=== PATIENT | female | born 1955 | race Caucasian/White ===

== ENCOUNTER → 2017-05-06 | Outpatient (CLI) | payer BC ==
--- NOTE | 2017-05-06 13:07 | MAMMOGRAPHY REPORT ---
BILATERAL DIGITAL SCREENING MAMMOGRAM TOMOSYNTHESIS WITH CAD: 05/06/2017 CLINICAL HISTORY: Routine screening examination. TECHNIQUE: Breast tomosynthesis in addition to standard 2D mammography was performed. Current study was also evaluated with a Computer Aided Detection (CAD) system. COMPARISON: Comparison is made to exams dated: 05/01/2016 mammogram, 04/27/2015 mammogram, 04/22/2014 mammogram, 04/21/2013 mammogram, 04/14/2012 mammogram, and 03/29/2010 mammogram - [facility]. BREAST COMPOSITION: There are scattered areas of fibroglandular density in both breasts. FINDINGS: There is a stable subcentimeter circumscribed benign mass in the anterior right breast. No suspicious spiculated or irregular mass, architectural distortion or cluster of microcalcifications is seen. IMPRESSION: ACR BI-RADS CATEGORY 1: NEGATIVE There is no mammographic evidence of malignancy. A 1 year screening mammogram is recommended. The pa tient will receive written notification of the results. Approximately 10% of breast cancers are not detected with mammography. A negative mammographic report should not delay biopsy if a clinically suggestive mass is present. Pilar Nicole M.D. ay/:05/06/2017 08:00:22 Physician Vice President: Madeline ABBASI(R)(M), [facility] letter sent: Normal 1/2 BI-RADS Code: ACR BI-RADS Category 1: Negative
== END | disposition home or self-care (01) ==
LOC: C.MAMM 07:06
PROVIDERS: ATTEND Obstetrics & Gynecology
DX: Z12.31 Encounter for screening mammogram for malignant neoplasm of breast (principal)

== ENCOUNTER 2022-09-08 07:37 | Observation (INO) ==
--- NOTE | 2022-09-08 07:58 | Emergency Department Note ---
ED Visit Note .
[2022-09-08] MEDS ORDERED: SODIUM CHLORIDE 0.9% 1000ML 1,000 ML IV ONE (08:16)
[2022-09-08] MEDS ORDERED: LORazepam 2 MG/1 ML VIAL IV STA (08:16)
[2022-09-08] MEDS ORDERED: ONDANSETRON INJ 2 MG/ML 2 ML VIAL IV STA (08:19)
--- NOTE | 2022-09-08 08:21 | Emergency Department Note ---
ED Provider Note History of Present Illness Chief Complaint: Dizziness Stated Complaint: DIZZINESS Time Seen by Provider: 09/08/22 07:51 This is a 67-year-old female with a history of vertigo for many years, hypertension, high cholesterol, accompanied by her , who presents to the emergency department with dizziness that began about 6 hours ago at 230 this morning when she woke up in the middle of the night. She felt diaphoretic and vomited twice. She states that she was walking down the rojas and felt like a drunk infantry senior sergeant stating that she kept bumping into the wall. She tried going back to bed and when she woke up this morning she was still having symptoms so she took a dose of meclizine. She does have a history of intermittent vertigo and will often take a half tab of meclizine which generally improves her symptoms. She states that she only vomited one other time in her past from a severe episode of meclizine. She is recovering from a bad cold that lasted about 4 weeks. Her symptoms began to resolve about 2 weeks ago. Right now she is feeling slightly better than she did earlier this morning, but she states that if she were to get up right now she thinks she would probably still be stumbling. When she sits still she is improved, changes in position seem to make her symptoms worse. She does not have a headache or any changes in vision, denies any chest pain or palpitations right now or during the event earlier today. She denies any fevers or chills, no numbness or tingling or weakness in her upper or lower extremities, facial droop, slurred speech. Has been evaluated for her vertigo in the past and states she has been prescribed the meclizine for the symptoms. No surgeries to her ears. Has never had a stroke. Takes aspirin, no other blood thinners Home Medications Medication Instructions Recorded Confirmed Type aspirin 81 mg tablet,delayed 81 mg PO DAILY 04/02/19 09/08/22 History release (Juliana Low Dose Aspirin) lisinopril 5 mg tablet 5 mg PO DAILY 04/02/19 09/08/22 History simvastatin 40 mg tablet 40 mg PO HS 04/02/19 09/08/22 History vitamin E 268 mg (400 unit) capsule 400 unit PO QAM 04/02/19 09/08/22 History meclizine 25 mg tablet 25 mg PO Q8H PRN Vertigo 09/08/22 09/08/22 History Allergies Allergy/AdvReac Type Severity Reaction Status Date / Time latex Allergy Unknown Unverified 09/08/22 09:36 No Known Drug Allergies Allergy Unknown Unverified 01/04/20 08:52 Past Med/Surg History Medical History Arthritis Hyperlipidemia Hypertension Vertigo Family History Other No significant family history Social History Smoking Status: Never smoker Second Hand Exposure: No; Do You Dip or Chew Tobacco: No; Tobacco Cessation Education Requested by Patient: No Hx Alcohol Use: No Hx Substance Use: No Preferred Language: Montenegrin Food Service Attendant Required: No Beliefs That Will Affect Care: None Current Living Situation: Spouse Other Information That Helps Us Care for You: No Feels Safe at Home: Yes Safety Concerns: Feels Safe At This Time Physical Exam Vital Signs Vital Signs - 24 hr 09/08/22 07:40 09/08/22 08:01 09/08/22 08:36 Temperature 97.9 F Temperature Source Temporal Artery Scan Pulse Rate 57 L 52 L Pulse Rate [Apical] 56 L Respiratory Rate 18 Blood Pressure 151/86 H Blood Pressure [Right Arm] 148/69 H Blood Pressure Mean 107 Blood Pressure Mean [Right Arm] 95 Pulse Oximetry 98 97 Oxygen Delivery Method Room Air Sepsis Recent Fever Within 48 Hours No Sepsis New/Unexplained Change in Mental Status N/A Sepsis Action Taken by Nursing No Action Required CONSTITUTIONAL: Well developed, well nourished, resting comfortably on stretcher with eyes low to avoid changes in position. HEAD: Normocephalic, atraumatic. EYES: PERRL, conjunctivae normal, extraocular muscles intact. No nystagmus. ENMT: External ears normal. TMs normal bilaterally with no bulging or fluid behind the TM. No evidence of otitis media. Nose with normal external appearance, no congestion. Oral mucous membranes moist. Oropharynx normal. Tongue midline, no fasciculations NECK: Full active range of motion. No rigidity. Supple. RESPIRATORY: Breathing unlabored and symmetric. Lungs clear to auscultation bilaterally. No wheeze, rales, or rhonchi. CARDIOVASCULAR: Regular rate and rhythm. No murmurs, rubs, or gallops. Radial pulses 2+ bilaterally. ABDOMEN: Normal bowel sounds. Soft, nontender, no peritonitis. No masses. MUSCULOSKELETAL: Moves all extremities at all joints without pain or difficulty SKIN: [place], warm, dry. No rash. NEUROLOGIC: Awake, alert, oriented. Cranial nerves II through XII intact. Coordination in upper and lower extremities intact. Sensation intact in bilateral upper and lower extremities. [id number] is normal. Patient to the right and the left minimally reproduces her symptoms though not severe. Patient with a slightly disrupted gait. She is able to track in a straight line but stumbles intermittently. Strength 5+ in bilateral upper and lower extremities. PSYCHIATRIC: Appropriate. Normal affect Course Reevaluation(s) Reevaluation #1: Reevaluated patient at bedside and discussed lab findings and CT scan. Patient stated that she was feeling slightly better though not completely resolved. I did ambulate her again and she was still stumbling to some extent. Administered Medications Aspirin (Aspirin 81 Mg Ectab) 81 mg PO DAILY CHARMAINE Stop: 10/08/22 13:57 Last Admin: 09/08/22 14:34 Dose: 81 mg Documented By: DEEPAK Cetirizine HCl (Cetirizine Hcl 10 Mg Tablet) 10 mg PO QAM CHARMAINE Stop: 10/08/22 12:29 Last Admin: 09/08/22 15:34 Dose: Not Given Documented By: DEEPAK Enoxaparin Sodium (Enoxaparin Inj 40 Mg/0.4 Ml Syr) 40 mg SQ Q24H CHARMAINE Stop: 10/08/22 14:14 Last Admin: 09/08/22 14:35 Dose: 40 mg Documented By: DEEPAK Lisinopril (Lisinopril 5 Mg Tab) 5 mg PO DAILY CHARMAINE Stop: 10/08/22 16:59 Last Admin: 09/08/22 16:43 Dose: 5 mg Documented By: DEEPAK Simvastatin (Simvastatin 40 Mg Tab) 40 mg PO HS CHARMAINE Stop: 10/08/22 20:59 Last Admin: 09/08/22 20:07 Dose: 40 mg Documented By: RMB Discontinued Medications Sodium Chloride (Nss 1000ml) 1,000 mls @ 999 mls/hr IV .Q1H1M ONE Stop: 09/08/22 09:16 Last Infusion: 09/08/22 09:29 Dose: 0 mls/hr Documented By: JEAN PIERRE Admin: 09/08/22 08:27 Dose: 999 mls/hr Documented By: JEAN PIERRE Lorazepam (Lorazepam 2 Mg/1 Ml Vial) 1 mg IV NOW STA Stop: 09/08/22 08:17 Last Admin: 09/08/22 08:27 Dose: 1 mg Documented By: JEAN PIERRE Ondansetron HCl (Ondansetron Inj 2 Mg/Ml 2 Ml Vial) 4 mg IV NOW STA Stop: 09/08/22 08:20 Last Admin: 09/08/22 08:27 Dose: 4 mg Documented By: JEAN PIERRE Medical Decision Making Differential Diagnosis Peripheral vertigo, central vertigo, cerebellar CVA, intracranial hemorrhage, FL, arrhythmia, vertebral artery dissection, among other pathology Medical Records Attestation: I reviewed the patient's medical records. Laboratory Data 09/08/22 07:58 09/08/22 07:58 Lab Results 09/08/22 09/08/22 09/08/22 Range/Units 07:58 07:58 12:12 WBC 7.13 (4.8-10.8) K/ul RBC 4.87 (4.20-5.40) M/uL Hgb 14.0 (12.0-16.0) g/dl Hct 41.7 (37.0-47.0) % MCV 85.6 (80.0-100.0) fL MCH 28.7 (25.0-34.0) pg MCHC 33.6 (32.0-36.0) g/dL RDW Std Deviation 40.7 (36.4-46.3) fL RDW Coeff of Rafy 13.1 (11.5-14.5) % Plt Count 281 (130-400) K/uL MPV 9.6 (9.4-12.4) fL Immature Gran % (Auto) 0.4 % Neut % (Auto) 81.2 % Lymph % (Auto) 13.6 % [place] % (Auto) 3.6 % Eos % (Auto) 0.4 % Baso % (Auto) 0.8 % Neut # (Auto) 5.78 (1.40-6.50) K/uL Lymph # (Auto) 0.97 L (1.2-3.4) K/uL [place] # (Auto) 0.26 (0.11-0.59) K/uL Eos # (Auto) 0.03 (0-0.50) K/uL Baso # (Auto) 0.06 (0-0.2) K/uL Immature Gran # (Auto) 0.03 (0.01-0.20) K/uL Sodium 138 (136-145) mmol/L Potassium 4.0 (3.5-5.1) mmol/L Chloride 107 (98-107) mmol/L Carbon Dioxide 23 (21-32) mmol/L Anion Gap 8 (3-11) BUN 13 (6-23) mg/dl Creatinine 0.60 (0.6-1.2) mg/dl Est Cr Clr Drug Dosing 95.1 ml/min Est GFR ( Amer) 109.3 ml/min Est GFR (Non-Af Amer) 94.3 ml/min BUN/Creatinine Ratio 21.7 H (10-20) Glucose 185 H (70-99(Fasting)) mg/dl Calcium 9.1 (8.6-10.3) mg/dl Total Bilirubin 0.5 (0.2-1.0) mg/dl AST 22 (13-39) U/L ALT 26 (7-52) U/L Alkaline Phosphatase 57 (34-104) U/L Troponin I High Sens 3.9 (0-14) pg/ml Total Protein 7.1 (6.0-8.3) gm/dl Albumin 4.3 (3.4-5.0) gm/dl Globulin 2.8 (2.5-4.0) gm/dl Albumin/Globulin Ratio 1.5 (0.9-2) SARS-CoV-2, RNA, NAAT NEGATIVE (NEGATIVE) Imaging Data Radiologist's Impression: Head CT 09/08/22 08:16 CT head/brain wo con CLINICAL HISTORY: 67 years-old Female with hx vertigo, symptoms worse today w/ vomiting. Acute vertigo with nausea and vomiting TECHNIQUE: Multiple axial CT images of the head were obtained without contrast. A dose lowering technique was utilized adhering to the principles of ALARA. CT DOSE: 537.48 mGy.cm COMPARISON: None. FINDINGS: No acute intracranial hemorrhage, midline shift, intracranial mass, hydrocephalus, territorial ischemia or abnormal extra-axial collection. Coarse calcifications of the falx cerebri. The calvarium is intact. Prior bilateral lens repair. The paranasal sinuses, mastoid air cells, and middle ear cavities are clear. IMPRESSION: No acute intracranial abnormality identified. ACT 112: Negative or not required by law. The above report was generated using voice recognition software. It may contain grammatical, syntax or spelling errors. Electronically signed by: Munir Kirk M.D. 09/08/2022 9:14 AM Chest X-Ray 09/08/22 11:21 XR chest 1V portable HISTORY: 67 years-old Female URI symptoms acute shortness of breath with upper respiratory infection COMPARISON: None TECHNIQUE: AP view of the chest FINDINGS: Cardiac silhouette is upper limits of normal in size. Atherosclerosis of the aorta. No pneumothorax, pleural effusion, airspace consolidation or pulmonary edema. Degenerative changes of the shoulders and spine. IMPRESSION: No acute process. ACT 112: Negative or not required by law. The above report was generated using voice recognition software. It may contain grammatical, syntax or spelling errors. Electronically signed by: Munir Kirk M.D. 09/08/2022 11:40 AM ECG Data Attestation: I personally reviewed and interpreted this ECG as follows: (Sinus bradycardia with a rate of 53. Intervals within normal limits. Left axis deviation. Nonspecific T wave abnormality in inferior leads. No priors available for comparison) MDM Narrative 67-year-old female with a history of vertigo for many years presents with a severe episode of vertigo resulting in her vomiting twice and feeling diaphoretic earlier this morning prompting her to take a dose of meclizine. She states she was having a hard time walking in the [place] because of how dizzy she was. When she presents to the emergency department her symptoms have begun to improve though she is hesitant to change positions quickly and is keeping her eyes low to avoid exacerbating her symptoms. Her neurologic exam is reassuring for the most part, I did have the patient ambulate and she is able to track in a straight line but stumbles to some extent. Rolling her to the right into the left minimally reproduces her sympto ms. EKG shows sinus bradycardia, nonspecific T wave abnormalities. Lab work was obtained demonstrating no leukocytosis or anemia. Normal renal function. No electrolyte disturbance. No transaminitis. Troponin is normal. Case discussed with ED attending Dr. Zamora and given her history of longsta nding vertigo, we will perform a head CT without contrast initially, treat the patient with some Ativan and Zofran as well as IV fluids And see how she responds. CT is negative for acute process. I reevaluated the patient at bedside, and patient stated that she was feeling slightly better though symptoms have not fully resolved. I did ambulate her again and she was still stumbling forward a bit. Case discussed with ED attending Dr. Zamora again, we felt it was prudent to admit the patient for further evaluation and observation, may require additional imaging on an inpatient basis, and do not feel comfortable discharging her home in this state as she is a fall risk. Patient was comfortable with this plan. Patient did remain persistently bradycardic. I do not suspect this is necessari ly the etiology of her symptoms but may require monitoring. Per chart review, has not been documented with bradycardia in the past. Case discussed with Dr. Welch (hospitalist group [facility]) who agrees to admit the patient. Impression Vertigo, Bradycardia Discharge Plan Visit Data Chief Complaint: Dizziness Stated Complaint: DIZZINESS ED Provider: Evan Zamora ED Midlevel Provider: Felix Ayala Discharge Problem: Vertigo, Bradycardia Patient Disposition: Admitted As Inpatient Condition: Fair Discharge Instructions Interventions: ED Discharge Assessment Last Done: 09/08/22 13:36
[2022-09-08 08:35] LABS: Basophils # (auto) 0.06 K/uL (0-0.2); Basophils % (auto) 0.8 %; Eosinophils # (auto) 0.03 K/uL (0-0.50); Eosinophils % (auto) 0.4 %; Hematocrit (blood only) 41.7 % (37.0-47.0); Immature Granulocytes # (auto) 0.03 K/uL (0.01-0.20); Immature Granulocytes % (auto) 0.4 %; Lymphocytes # (auto) 0.97 K/uL (1.2-3.4); Lymphocytes % (auto) 13.6 %; Mean Corpuscular Hemoglobin 28.7 pg (25.0-34.0); Mean Corpuscular Hgb Conc 33.6 g/dL (32.0-36.0); Mean Corpuscular Volume 85.6 fL (80.0-100.0); Mean Platelet Volume 9.6 fL (9.4-12.4); Monocytes # (auto) 0.26 K/uL (0.11-0.59); Monocytes % (auto) 3.6 %; Neutrophils # (auto) 5.78 K/uL (1.40-6.50); Neutrophils % (auto) 81.2 %; Platelet Count 281 K/uL (130-400); RDW Coefficient of Variation 13.1 % (11.5-14.5); RDW Standard Deviation 40.7 fL (36.4-46.3); Red Blood Count 4.87 M/uL (4.20-5.40); White Blood Count 7.13 K/ul (4.8-10.8)
[2022-09-08 08:50] LABS: Troponin I High Sensitivity 3.9 pg/ml (0-14)
[2022-09-08 09:08] LABS: Albumin Level 4.3 gm/dl (3.4-5.0); Bilirubin,Total 0.5 mg/dl (0.2-1.0); Calcium 9.1 mg/dl (8.6-10.3)
[2022-09-08 09:14] LABS: Albumin Globulin Ratio 1.5 (0.9-2); BUN Creatinine Ratio 21.7 (10-20); Creatinine Clr Calc Pharmacy 95.1 ml/min; Est GFR (African American) 109.3 ml/min; Est GFR (Non-African American) 94.3 ml/min; Globulin 2.8 gm/dl (2.5-4.0); Total Protein 7.1 gm/dl (6.0-8.3)
--- NOTE | 2022-09-08 09:16 | CT Scan Report ---
CT head/brain wo con CLINICAL HISTORY: 67 years-old Female with hx vertigo, symptoms worse today w/ vomiting. Acute verti go with nausea and vomiting TECHNIQUE: Multiple axial CT images of the head were obtained without contrast. A dose lowering tech nique was utilized adhering to the principles of ALARA. CT DOSE: 537.48 mGy.cm COMPARISON: None. FINDINGS: No acute intracranial hemorrhage, midline shift, intracranial mass, hydrocephalus, territorial ischem ia or abnormal extra-axial collection. Coarse calcifications of the falx cerebri. The calvarium is intact. Prior bilateral lens repair. The paranasal sinuses, mastoid air cells, and m iddle ear cavities are clear. IMPRESSION: No acute intracranial abnormality identified. ACT 112: Negative or not required by law. The above report was generated using voice recognition software. It may contain grammatical, syntax o r spelling errors. Electronically signed by: Munir Kirk M.D. 09/08/2022 9:14 AM
--- NOTE | 2022-09-08 11:42 | XRay Report ---
XR chest 1V portable HISTORY: 67 years-old Female URI symptoms acute shortness of breath with upper respiratory infection COMPARISON: None TECHNIQUE: AP view of the chest FINDINGS: Cardiac silhouette is upper limits of normal in size. Atherosclerosis of the aorta. No pneumothorax, pleural effusion, airspace consolidation or pulmonary edema. Degenerative changes of the shoulders an d spine. IMPRESSION: No acute process. ACT 112: Negative or not required by law. The above report was generated using voice recognition software. It may contain grammatical, syntax o r spelling errors. Electronically signed by: Munir Kirk M.D. 09/08/2022 11:40 AM
--- NOTE | 2022-09-08 11:48 | History & Physical Report ---
Date of Service September 08, 2022 Assessment & Plan (1) Vertigo: Plan: -Admit to med/tele -At this time it appears that the patient is having an episode of her typical vertigo, which is often difficult to control -Symptoms have improved since arrival to the ED but she does not feel well enough to go home at this time -CT of the head is negative, no focal neuro defects, no new symptoms for the patient compared ot previous episodes -Will continue with 25 mg PO meclizine q8h prn vertigo, fall precautions ordered -Patient instructed to ask for help with getting up and walking at this time to avoid falls -Will consult PT to perform Eply maneuver -AM CBC and BMP (2) Head congestion: Plan: -Has noted 3-4 weeks on increased congestion and post-nasal drip -Likely due to seasonal allergies -No discomfort with palpation of the maxillary and front sinuses -Will start daily Cetirizine (3) Bradycardia: Plan: -Noted to have a few episodes of sinus bradycardia with HR in the 50's -Currently in NSR and asymptomatic -Continue to monitor on tele for now (4) Hyperlipidemia: Plan: -Continue statin (5) Hypertension: Plan: -Stable -Continue lisinopril Plan The patient was discussed with Dr. Welch at the time of the admission DVT PPX: BL SCD's and Sub-Q lovenox Diet: Heart Healthy Disposition: Can likely be discharged home tomorrow if symptoms have improved History of Present Illness Chief Complaint: Vertigo Primary Care Provider: Moses Castillo is a 67 year old female with a PMH significant for Vertigo, HTN, hyperlipidemia who presented to the [facility] with vertigo. She was noted to be bradycardic in the ED with a HR in the 50's otherwise vitals were stable. CBC and CMP were WNL. Chest xray and CT head were negative for acute findings. The patient was given 1 mg Ativan, 1L NSS, and 4 mg IV zofran without relief of her symptoms. At the time of the exam the patient was sitting in bed in no acute distress with her sitting bedside. She explains that she has a long history of vertigo. The length and duration of symptoms will vary based on how quickly she is able to tell when her symptoms are starting and how quickly she takes meclizine. She states that at it's worst her symptoms can last for days. This am around 0200 she awoke with her vertigo, she confirms that the room was spinning. She states that she has had tinnitus in her BL ears for years, it is not unilateral and is not associated with her vertigo. She took 1/2 tab of her 25 mg PO meclizine and went to bed. She she woke again her symptoms were still present, she had two episodes of nausea and vomiting prior to arrival to the ED. She notes URI symptoms including congestion, post-nasal drip and non-productive cough which started approximately 3-4 weeks ago. Her symptoms have mainly resolved. When asked, she confirms that these are her typical vertigo symptoms. She denies that her current symptoms are worse than her previous episodes. She states that he vertigo is typically more difficult to treat when she wakes up with symptoms compared to when her symptoms begin when she is awake and can take meclizine quickly. She denies recent headache, chest pain, SOB, abd pain, diarr hea, dysuria, hematuria, LE swelling and recent trauma. She is a full code and wishes for her to make medical decisions for her if she cannot make them herself. Please refer to Dr. Welch's attestation for any changes to the treatment plan Allergies Allergy/AdvReac Type Severity Reaction Status Date / Time latex Allergy Unknown Unverified 09/08/22 09:36 No Known Drug Allergies Allergy Unknown Unverified 01/04/20 08:52 Home Medications Medication Instructions Recorded Confirmed Type aspirin 81 mg tablet,delayed 81 mg PO DAILY 04/02/19 09/08/22 History release (Juliana Low Dose Aspirin) lisinopril 5 mg tablet 5 mg PO DAILY 04/02/19 09/08/22 History simvastatin 40 mg tablet 40 mg PO HS 04/02/19 09/08/22 History vitamin E 268 mg (400 unit) capsule 400 unit PO QAM 04/02/19 09/08/22 History meclizine 25 mg tablet 25 mg PO Q8H PRN Vertigo 09/08/22 09/08/22 History Past Med/Surg History Medical History Arthritis Hyperlipidemia Hypertension Vertigo Family History Other No significant family history Social History Smoking Status: Never smoker Second Hand Exposure: No; Do You Dip or Chew Tobacco: No; Tobacco Cessation Education Requested by Patient: No Hx Alcohol Use: No Hx Substance Use: No Preferred Language: Georgian Alley Tender Required: No Beliefs That Will Affect Care: None Current Living Situation: Spouse Other Information That Helps Us Care for You: No Feels Safe at Home: Yes Safety Concerns: Feels Safe At This Time Physical Exam Physical Exam: Physical Exam: General: In no acute distress, stated age, well-nourished, good hygiene HEENT: Normocephalic, atraumatic, no discomfort or fullness to palpation of the maxillary and frontal sinuses, no scleral icterus, pupils around round, symmetrical, and reactive to light, moist mucus membranes, trachea midline, no thyromegaly Chest/Pulm: No respiratory distress, symmetrical chest expansion, clear breath sounds throughout Cardiac: RRR, no murmurs noted Abdomen: Negative for ascites and bruising, normoactive bowel sounds, soft, non-tender to palpation throughout Musculoskeletal: Symmetrical and without signs of acute trauma, upper and lower extremities with full ROM, no atrophy, spasticity, or flaccidity Extremities: Radial, dorsalis pedis, and posterior tibial pulses are intact and symmetrical, no edema noted in the BL LE's Skin: Warm, dry, no rashes , lesions, or scars noted Neuro: Alert and oriented to person, place, month, year, and president, no focal defects, CN II-XII tested and intact, Cerebellar testing WNL, negative pronator drift, no tremors noted, symmetrial strength in the BL upper and lower extremities >Patient noted to have lateral nystagmus and vertical Nystagmus with EOM testing, this resolved with rest Psych: No acute distress, calm and cooperative during the exam Results & Data Results & Data Vital Signs (Past 12 Hours) Vital Signs Temp Pulse Pulse Resp BP BP Pulse Ox 09/08/22 08:36 52 L 09/08/22 08:01 56 L 148/69 H 97 09/08/22 07:40 36.6 C 57 L 18 151/86 H 98 O2 Del Method 09/08/22 08:36 09/08/22 08:01 Room Air 09/08/22 07:40 Laboratory Results Abnormal lab results 09/08/22 09/08/22 Range/Units 07:58 07:58 Lymph # (Auto) 0.97 L (1.2-3.4) K/uL BUN/Creatinine Ratio 21.7 H (10-20) Glucose 185 H (70-99(Fasting)) mg/dl Diagnostic Findings Head CT 09/08/22 08:16 CT head/brain wo con CLINICAL HISTORY: 67 years-old Female with hx vertigo, symptoms worse today w/ vomiting. Acute vertigo with nausea and vomiting TECHNIQUE: Multiple axial CT images of the head were obtained without contrast. A dose lowering technique was utilized adhering to the principles of ALARA. CT DOSE: 537.48 mGy.cm COMPARISON: None. FINDINGS: No acute intracranial hemorrhage, midline shift, intracranial mass, hydrocephalus, territorial ischemia or abnormal extra-axial collection. Coarse calcifications of the falx cerebri. The calvarium is intact. Prior bilateral lens repair. The paranasal sinuses, ma stoid air cells, and middle ear cavities are clear. IMPRESSION: No acute intracranial abnormality identified. ACT 112: Negative or not required by law. The above report was generated using voice recognition software. It may contain grammatical, syntax or spelling errors. Electronically signed by: Munir Kirk M.D. 09/08/2022 9:14 AM Chest X-Ray 09/08/22 11:21 XR chest 1V portable HISTORY: 67 years-old Female URI symptoms acute shortness of breath with upper respiratory infection COMPARISON: None TECHNIQUE: AP view of the chest FINDINGS: Cardiac silhouette is upper limits of normal in size. Atherosclerosis of the aorta. No pneumothorax, pleural effusion, airspace consolidation or pulmonary edema. Degenerative changes of the shoulders and spine. IMPRESSION: No acute process. ACT 112: Negative or not required by law. The above report was generated using voice recognition software. It may contain grammatical, syntax or spelling errors. Electronically signed by: Munir Kirk M.D. 09/08/2022 11:40 AM ECG Additional Comments: Poor data quality, interpretation may be adversely affected Sinus bradycardia Nonspecific T wave abnormality Abnormal ECG No previous ECGs available Code Status & VTE Plan Code Status Full code Supervising Physician Co-Signing Physician Notes I personally saw and examined the patient. I verified all blake points and agree with Evan Lamar PA-C with the following exceptions and/or additions: 67 year old female presents to the ER with vertigo. She gets similar but less severe episodes 1-2 times a year for which she normally take half a dose of meclizine for a day and it resolves. This occasion was similar to other episodes of BPPV without any other focal neurological deficit but just more severe. O/E A&Ox3, HS RRR, no murmurs, Chest CTAB, Abdo SNT, CN 2-> 12 intact, no extremity weakness of numbness A/P BPPV - meclizine PRN, already improving when seen on the snyder, PT tomorrow, hopefully discharge tomorrow if symptoms improve enough to be safe at home. If persistent symptoms here consider brain MRI but given history of intermittent BPPV and lack of neurological findings low likelihood of CVA causing this. PG Care Time/CCT Total # of Minutes Spent Total Time Spent with Patient: Total time spent is greater than 50% in coordination of care (as documented) at patient's floor/unit and/or counseling patient: [place] [address] INT INP/OBS CARE 2/55MIN Patient Type Established Medical Decision Making Moderate Complexity Diagnoses Vertigo R42 Head congestion R09.81 Bradycardia R00.1 Hyperlipidemia E78.5 Hypertension I10
[2022-09-08] MEDS ORDERED: MECLIZINE HCL 25 MG TAB PO PRN (12:09)
[2022-09-08] MEDS ORDERED: ACETAMINOPHEN 325 MG TAB PO PRN (13:58)
[2022-09-08] MEDS ORDERED: ENOXAPARIN INJ 40 MG/0.4 ML SYR SQ SCH (14:15)
--- NOTE | 2022-09-08 14:22 | Electrocardiogram Report ---
Test Reason : Blood Pressure : / mmHG Vent. Rate : 053 BPM Atrial Rate : 053 BPM P-R Int : 134 ms QRS Dur : 094 ms QT Int : 462 ms P-R-T Axes : 019 -25 011 degrees QTc Int : 433 ms Poor data quality, interpretation may be adversely affected Sinus bradycardia Poor R wave progression, consider anterior IA vs. lead placement vs. LVH Nonspecific T wave abnormality Abnormal ECG No previous ECGs available Confirmed by Oswaldo Mack ([id number]) on 09/08/2022 2:22:03 PM Referred By: REFERRED SELF Confirmed By:Oswaldo Mack
[2022-09-08] MEDS: ASPIRIN 81 MG ECTAB PO SCH (14:34)
[2022-09-08] MEDS: CETIRIZINE HCL 10 MG TABLET PO SCH (15:34)
[2022-09-08] MEDS: lisinopril 5 MG TAB PO SCH (16:43)
[2022-09-08] MEDS ORDERED: SIMVASTATIN 40 MG TAB PO SCH (21:00)
[2022-09-09] MEDS: lisinopril 5 MG TAB PO SCH (07:38)
[2022-09-09] MEDS: ASPIRIN 81 MG ECTAB PO SCH (07:38)
[2022-09-09] MEDS: CETIRIZINE HCL 10 MG TABLET PO SCH (07:39)
[2022-09-09 08:26] LABS: Hematocrit (blood only) 43.6 % (37.0-47.0); Hemoglobin 14.4 g/dl (12.0-16.0); Mean Corpuscular Hemoglobin 29.1 pg (25.0-34.0); Mean Corpuscular Volume 88.3 fL (80.0-100.0); Mean Platelet Volume 9.4 fL (9.4-12.4); Platelet Count 290 K/uL (130-400); RDW Coefficient of Variation 13.3 % (11.5-14.5); RDW Standard Deviation 42.9 fL (36.4-46.3); Red Blood Count 4.94 M/uL (4.20-5.40); White Blood Count 5.68 K/ul (4.8-10.8)
[2022-09-09 08:55] LABS: BUN Creatinine Ratio 18.5 (10-20); Calcium 9.1 mg/dl (8.6-10.3); Creatinine Clr Calc Pharmacy 88.9 ml/min; Est GFR (African American) 106.5 ml/min; Est GFR (Non-African American) 91.9 ml/min; Potassium 3.9 mmol/L (3.5-5.1)
--- NOTE | 2022-09-09 11:19 | Discharge Summary ---
Date of Service September 09, 2022 Admission HPI Per Admitting Provider Anna is a 67 year old female with a PMH significant for Vertigo, HTN, hyperlipidemia who presented to the [facility] with vertigo. She was noted to be bradycardic in the ED with a HR in the 50's otherwise vitals were stable. CBC and CMP were WNL. Chest xray and CT head were negative for acute findings. The patient was given 1 mg Ativan, 1L NSS, and 4 mg IV zofran without relief of her symptoms. At the time of the exam the patient was sitting in bed in no acute distress with her sitting bedside. She explains that she has a long history of vertigo. The length and duration of symptoms will vary based on how quickly she is able to tell when her symptoms are starting and how quickly she takes meclizine. She states that at it's worst her symptoms can last for days. This am around 0200 she awoke with her vertigo, she confirms that the room was spinning. She states that she has had tinnitus in her BL ears for years, it is not unilateral and is not associated with her vertigo. She took 1/2 tab of her 25 mg PO meclizine and went to bed. She she woke again her symptoms were still present, she had two episodes of nausea and vomiting prior to arrival to the ED. She notes URI symptoms including congestion, post-nasal drip and non-productive cough which started approximately 3-4 weeks ago. Her symptoms have mainly resolved. When asked, she confirms that these are her typical vertigo symptoms. She denies that her current symptoms are worse than her previous episodes. She states that he vertigo is typically more difficult to treat when she wakes up with symptoms compared to when her symptoms begin when she is awake and can take meclizine quickly. She denies recent headache, chest pain, SOB, abd pain, diarrhea, dysuria, hematuria, LE swelling and recent trauma. She is a full code and wishes for her to make medical decisions for her if she cannot make them herself. Please refer to Dr. Welch's attestation for any changes to the treatment plan Admission Exam Per Admitting Provider General:In no acute distress, stated age, well-nourished, good hygiene HEENT:Normocephalic, atraumatic, no discomfort or fullness to palpation of the maxillary and frontal sinuses, no scleral icterus, pupils around round, symmetrical, and reactive to light, moist mucus membranes, trachea midline, no thyromegaly Chest/Pulm:No respiratory distress, symmetrical chest expansion, clear breath sounds throughout Cardiac:RRR, no murmurs noted Abdomen:Negative for ascites and bruising, normoactive bowel sounds, soft, non-tender to palpation throughout Musculoskeletal:Symmetrical and without signs of acute trauma, upper and lower extremities with full ROM, no atrophy, spasticity, or flaccidity Extremities:Radial, dorsalis pedis, and posterior tibial pulses are intact and symmetrical, no edema noted in the BL LE's Skin:Warm, dry, no rashes , lesions, or scars noted Neuro:Alert and oriented to person, place, month, year, and president, no focal defects, CN II-XII tested and intact, Cerebellar testing WNL, negative pronator drift, no tremors noted, symmetrial strength in the BL upper and lower extremities >Patient noted to have lateral nystagmus and vertical Nystagmus with EOM testing, this resolved with rest Psych:No acute distress, calm and cooperative during the exam Principal Diagnosis Vertigo Discharge Exam Constitutional WD/WN, vitals as above Neck trachea midline, no thyromegaly Respiratory normal respiratory effort, lungs clear to auscultation Cardiovascular RRR, no murmur, no edema Gastrointestinal (Abdomen) normal bowel sounds, soft, nontender, no hepatosplenomegaly Skin no rashes, warm and dry Neurologic PERRL, EOMI, accommodation nl, no face palsy, no dysarthria Psychiatric A+Ox3, euthymic affect Discharge Data Allergies Allergy/AdvReac Type Severity Reaction Status Date / Time latex Allergy Unknown Unverified 09/08/22 09:36 No Known Drug Allergies Allergy Unknown Unverified 01/04/20 08:52 Consultations 09/08/22 11:21 ED Decision to Admit Stat Ordered Studies 09/08/22 08:16 CT head/brain wo con Stat IMPRESSION: No acute intracranial abnormality identified. Hospital Course (1) Vertigo: Symptoms have resolved at this time and she wishes to be discharged to home. -CT of the head is negative, no focal neuro defects, no new symptoms for the patient compared to her previous episodes -Will continue with 25 mg PO meclizine q8h prn vertigo, fall precautions ordered -Patient instructed to ask for help with getting up and walking at this time to avoid falls -Will consult PT to perform Eply maneuver -AM CBC and BMP (2) Head congestion: -Has noted 3-4 weeks on increased congestion and post-nasal drip -Likely due to seasonal allergies -No discomfort with palpation of the maxillary and front sinuses -Advised patient to continue daily Cetirizine (3) Bradycardia: -Noted to have a few episodes of sinus bradycardia with HR in the 50's -Currently in NSR and asymptomatic -Heart rate currently 58 on monitor (4) Hyperlipidemia: -Continue statin (5) Hypertension: -Stable -Continue lisinopril Plan Discharge patient to home with follow up with her PCP Total Time Total Time Spent Total Time Spent (In Minutes): 35 Discharge Plan Discharge Items Patient Disposition: Home - Self-Care Reason For Visit: vertigo Discharge Diagnosis: Vertigo Condition on Discharge: Fair Activity: As commented below Activity Comment: No driving, until follow up with PCP Weightbearing: Full weightbearing Non-emergency contact: Primary Care Provider Call non-emergency contact if: you have any medication questions and your symptoms worsen Follow-up/Referrals: Moses Regalado [Primary Care Provider] - (PLEASE CALL YOUR PRIMARY CARE PROVIDER TO SCHEDULE A DISCHARGE FOLLOW-UP APPOINTMENT WITHIN 7-10 DAYS.) Diet: Heart Healthy Addtl Attending Provider Instructions: You were admitted with vertigo. You stated that you suffer from vertigo and treat with meclizine. You also had some post nasal crear drainage that was felt was due to seasonal allergies and was treated with Cefatrizine. Physical Therapy was consulted to preform Eply maneuver BUT your vertigo has completely resolved and you wished to be discharged to home. Advised to continue OTC antihistamines as needed. You stated that you have meclizine at home and do not need a new rx. You will call your PCP for a follow up. Pending Studies at Discharge: No Stand-Alone Forms: [facility] Medications and DC Order Prescriptions: Continued aspirin [Juliana Low Dose Aspirin] 81 mg Tablet,Delayed Release (Dr/Ec) 81 mg PO DAILY simvastatin 40 mg tablet 40 mg PO HS lisinopril 5 mg tablet 5 mg PO DAILY vitamin E 400 unit Capsule 400 unit PO QAM meclizine 25 mg tablet 25 mg PO Q8H PRN (Reason: Vertigo) Discharge Orders: Discharge Order (Routine); Ordered 09/09/22 Ordered By: Jenelle Salcedo/Other Patient Handouts: Vertigo Medicine Tx, Vertigo Staying Safe Admission Data Admit Date/Time: 09/08/22 12:15 Attending Provider: Felix Epstein Admit Provider: Kumar Welch Primary Care Provider: Moses Regalado Other Providers: Kumar Welch Coding Level of Care Code 11199 INP/OBS DISCH >30 MIN Diagnoses Vertigo R42 Head congestion R09.81 Bradycardia R00.1 Hyperlipidemia E78.5 Hypertension I10 Time Spent (min) 35
== END 2022-09-09 12:46 | disposition home or self-care (01) ==
LOC: 2N 07:37 → ED 07:37 → SUATTDRO 12:15 → 2N 13:36

== ENCOUNTER 2023-11-26 20:13 | Inpatient (IN) ==
[2023-11-26 21:11] LABS: Appearance Urine Turbid (Clear); Bilirubin Urine Negative (Negative); Blood Urine 3+ (Negative); Color Urine Red; Glucose Urine UA Negative (Negative); Ketones Urine Negative (Negative); Leukocyte Esterase Urine 1+ (Negative); Nitrite Urine Negative (Negative); Protein Urine 3+ (Negative); Specific Gravity Urine >= 1.030 (1.000-1.030); Urobilinogen Urine Negative (Negative)
[2023-11-26 21:15] LABS: RBC Urine >20 /hpf (0-2); WBC Urine >50 /hpf (0-5)
[2023-11-26 21:16] LABS: Bacteria Urine None Seen (None Seen); Epithelial Cell Urine 0-2 /hpf (0-2)
[2023-11-26 21:33] LABS: Basophils # (auto) 0.07 K/uL (0.00-0.20); Basophils % (auto) 0.6 %; Eosinophils # (auto) 0.09 K/uL (0.00-0.50); Eosinophils % (auto) 0.8 %; Hematocrit (blood only) 43.4 % (37.0-47.0); Hemoglobin 14.2 g/dl (12.0-16.0); Immature Granulocytes # (auto) 0.04 K/uL (0.01-0.20); Immature Granulocytes % (auto) 0.3 %; Lymphocytes # (auto) 1.75 K/uL (1.20-3.40); Mean Corpuscular Hemoglobin 28.5 pg (25.0-34.0); Mean Corpuscular Hgb Conc 32.7 g/dL (32.0-36.0); Mean Corpuscular Volume 87.1 fL (80.0-100.0); Monocytes # (auto) 0.98 K/uL (0.11-0.59); Monocytes % (auto) 8.4 %; Neutrophils # (auto) 8.72 K/uL (1.40-6.50); Neutrophils % (auto) 74.9 %; Platelet Count 340 K/uL (130-400); RDW Coefficient of Variation 13.2 % (11.5-14.5); RDW Standard Deviation 42.1 fL (36.4-46.3); Red Blood Count 4.98 M/uL (4.20-5.40); White Blood Count 11.65 K/ul (4.8-10.8)
[2023-11-26 21:36] LABS: Albumin Globulin Ratio 1.5 (0.9-2); Albumin Level 4.6 gm/dl (3.4-5.0); BUN Creatinine Ratio 18.1 (10-20); Bilirubin,Total 0.6 mg/dl (0.2-1.0); Calcium 9.9 mg/dl (8.6-10.3); Creatinine Clr Calc Pharmacy 78.6 ml/min; Est GFR (African American) 99.7 ml/min; Est GFR (Non-African American) 86.1 ml/min; Globulin 3.1 gm/dl (2.5-4.0); Total Protein 7.7 gm/dl (6.0-8.3)
--- NOTE | 2023-11-26 22:22 | Emergency Department Note ---
Impression & Plan Hematuria, Kidney calculus ED Provider Note NAME: PATSY GRANADOS AGE: 68 SEX: Female INFORMANT: Patient ED PROVIDER(S): Harrison Cartagena MD CHIEF COMPLAINT: Urinary symptoms PLAN: Disposition: Admitted Outpatient prescription management: none Referral: None MEDICAL DECISION MAKING: Patient presented because of hematuria. She underwent blood work and there was a mild leukocytosis. Chemistry panel was unremarkable. The patient has hematuria and pyuria on urinalysis without bacteria. CT imaging was performed and she has a large complex right-sided kidney stone with some hydro-. Left kidney stone noted. Discussed case with urology, Dr. Shepard. We both were concerned about possible partially treated UTI with large stone in place. I discussed treatment IV antibiotics and admission to the hospital. He recommended n.p.o. after midnight and urology can consult on the patient in the morning. Consultation was made with Dr. Reid Donato of the [facility] service. Patient was evaluated in the ER for further management. Care/management discussed with: bus transportation manager Level of care consideration(s): After review of the information above and other included data, I feel the patient requires escalation of care to admission Triage Nursing notes: reviewed and agree them. Vital Signs: reviewed and remarkable for no significant abnormalities Additional History obtained from: none Chronic Medical/Social Conditions affecting care: none Prior/ Outside/ External records reviewed: none Differential Diagnosis: Renal colic, UTI, appendicitis, diverticulitis, mesenteric ischemia, aortic pathology, infections, inflammatory bowel disease, PUD, biliary pathology, as well as other pathologies. Diagnostics, independently interpreted by me: ECG: none Cardiac Monitoring: Cardiac monitoring ordered by me: The patient was placed on continuous cardiac monitoring and observed. It revealed a normal sinus rhythm at 63 beats per minute without ectopy or evidence of dysrhythmia. Medical decision rules: none Imaging studies: CT imaging of the abdomen pelvis reveals a large right-sided kidney stone at the renal pelvis with hydro-. I refer you to the EMR for further details. HPI: 68 year old Female arrives for evaluation of hematuria. This started tonight and is first episode for the patient. She states over the last week or so she has had some urinary symptoms and went to urgent care. She was placed on amoxicillin. She seemed to get better. She had some intermittent right flank discomfort. Patient then noticed some additional symptoms today and went to urgent care again. She was placed on Keflex. Current pain is rated as 0/10. Patient does note pain has gone up to about 5. Pt denies LOC, headache, fevers, chills, diaphoresis, visual changes, neck pain, chest pain, breathing difficulties, nausea, vomiting, abdominal pain, melena, hematochezia, numbness, weakness, lymphadenopathy, rash, or other complaints. PAST MEDICAL HISTORY: See Below, kidney stones PAST SURGICAL HISTORY: See Below, SOCIAL HISTORY: See Below, non-smoker HOME MEDICATIONS: See Below ALLERGIES: See Below VITALS: See Below PHYSICAL EXAMINATION: GENERAL: Awake, alert, well-appearing, in no distress HENT: Normocephalic, atraumatic. Oropharynx unremarkable. EYES: Normal conjunctiva. Sclera non-icteric. NECK: Inspection normal. Non-tender. Supple. No nuchal rigidity. FROM. No masses. RESPIRATORY: Clear to auscultation. No wheezes. No rales. Normal respiratory effort. CARDIAC: Normal rate. Normal rhythm. No murmurs. No rubs. Extremities warm and well perfused. Pulses equal. No JVD. GI: Soft, non-distended. No tenderness to palpation. No rebound or guarding. No masses. RECTAL: Deferred. MUSCULOSKELETAL: Atraumatic. Chest examination reveals no tenderness. The back is symmetrical on inspection without obvious abnormality. There is minimal right CVA tenderness to palpation. No joint edema. LOWER EXTREMITIES: Calves are equal size bilaterally and non-tender. No edema. No discoloration. NEURO: Normal sensorium. No sensory or motor deficits noted. SKIN: No rash or jaundice noted. PROCEDURES: none CRITICAL CARE: none OBSERVATION NOTE: none Past Med/Surg History Problem List (Updated 11/26/23 @ 22:22 by Harrison Cartagena MD) Kidney calculus (Acute) Hematuria (Acute) Hypertension Hyperlipidemia Vertigo (Acute) Bradycardia (Acute) Adrenal adenoma Gross hematuria Cystocele Medical History Arthritis Hyperlipidemia Hypertension Vertigo Family History Other No significant family history Social History Smoking Status: Never smoker Second Hand Exposure: No; Do You Dip or Chew Tobacco: No; Hx Alcohol Use: No Hx Substance Use: No Preferred Language: Maori Communication Ability: Effective Press Tender Smoke Signal Required: No Beliefs That Will Affect Care: None Current Living Situation: Spouse Feels Safe at Home: Yes Assistive Devices: None Allergies Allergies Allergy/AdvReac Type Severity Reaction Status Date / Time latex Allergy Unknown Verified 11/26/23 23:36 No Known Drug Allergies Allergy Unknown Verified 11/26/23 23:36 Home Meds Home Medications Medication Instructions Recorded Confirmed aspirin 81 mg tablet,delayed 81 mg PO QPM 04/02/19 11/26/23 release (Juliana Low Dose Aspirin) lisinopril 5 mg tablet 5 mg PO QPM 04/02/19 11/26/23 simvastatin 40 mg tablet 40 mg PO HS 04/02/19 11/26/23 vitamin E 268 mg (400 unit) capsule 400 unit PO QAM 04/02/19 11/26/23 meclizine 25 mg tablet 25 mg PO Q8H PRN Vertigo 09/08/22 11/26/23 amoxicillin 875 mg-potassium 1 tab PO BID 11/26/23 11/26/23 clavulanate 125 mg tablet Results & Data (ED) Vital Signs Vital Signs - 24 hr 11/26/23 20:16 11/26/23 21:00 11/26/23 21:01 Temperature 36.5 C Temperature Source Temporal Artery Scan Pulse Rate 78 Pulse Rate [Finger] 62 Respiratory Rate 16 19 Respiratory Effort / Characteristics Non-Labored Spontaneous Respiratory Depth Normal Blood Pressure 172/83 H Blood Pressure [Right Arm] 131/69 Blood Pressure Mean 112 Blood Pressure Mean [Right Arm] 89 Pulse Oximetry 99 98 98 Oxygen Delivery Method Room Air Room Air Room Air Sepsis Recent Fever Within 48 Hours No Sepsis New/Unexplained Change in Mental Status No Sepsis Action Taken by Nursing No Action Required 11/26/23 23:00 Temperature Temperature Source Pulse Rate Pulse Rate [Finger] 63 Respiratory Rate 23 Respiratory Effort / Characteristics Respiratory Depth Blood Pressure Blood Pressure [Right Arm] 121/75 Blood Pressure Mean Blood Pressure Mean [Right Arm] 90 Pulse Oximetry 99 Oxygen Delivery Method Room Air Sepsis Recent Fever Within 48 Hours Sepsis New/Unexplained Change in Mental Status Sepsis Action Taken by Nursing Laboratory Data 11/26/23 20:41 11/26/23 20:41 Lab Results 11/26/23 11/26/23 Range/Units 20:41 20:47 WBC 11.65 H (4.8-10.8) K/ul RBC 4.98 (4.20-5.40) M/uL Hgb 14.2 (12.0-16.0) g/dl Hct 43.4 (37.0-47.0) % MCV 87.1 (80.0-100.0) fL MCH 28.5 (25.0-34.0) pg MCHC 32.7 (32.0-36.0) g/dL RDW Std Deviation 42.1 (36.4-46.3) fL RDW Coeff of Rafy 13.2 (11.5-14.5) % Plt Count 340 (130-400) K/uL MPV 10.0 (9.4-12.4) fL Immature Gran % (Auto) 0.3 % Neut % (Auto) 74.9 % Lymph % (Auto) 15.0 % [place] % (Auto) 8.4 % Eos % (Auto) 0.8 % Baso % (Auto) 0.6 % Neut # (Auto) 8.72 H (1.40-6.50) K/uL Lymph # (Auto) 1.75 (1.20-3.40) K/uL [place] # (Auto) 0.98 H (0.11-0.59) K/uL Eos # (Auto) 0.09 (0.00-0.50) K/uL Baso # (Auto) 0.07 (0.00-0.20) K/uL Immature Gran # (Auto) 0.04 (0.01-0.20) K/uL Sodium 139 (136-145) mmol/L Potassium 4.0 (3.5-5.1) mmol/L Chloride 103 (98-107) mmol/L Carbon Dioxide 27 (21-32) mmol/L Anion Gap 9 (3-11) BUN 13 (6-23) mg/dl Creatinine 0.72 (0.6-1.2) mg/dl Est Cr Clr Drug Dosing 78.6 ml/min Est GFR ( Amer) 99.7 ml/min Est GFR (Non-Af Amer) 86.1 ml/min BUN/Creatinine Ratio 18.1 (10-20) Glucose 123 H (70-99(Fasting)) mg/dl Lactate 1.2 (0.4-2.0) mmol/L Calcium 9.9 (8.6-10.3) mg/dl Total Bilirubin 0.6 (0.2-1.0) mg/dl AST 16 (13-39) U/L ALT 18 (7-52) U/L Alkaline Phosphatase 70 (34-104) U/L Total Protein 7.7 (6.0-8.3) gm/dl Albumin 4.6 (3.4-5.0) gm/dl Globulin 3.1 (2.5-4.0) gm/dl Albumin/Globulin Ratio 1.5 (0.9-2) Lipase 37 (11-82) U/L Urine Color Red Urine Appearance Turbid A (Clear) Urine pH 7.0 (4.5-7.5) Ur Specific [place] >= 1.030 (1.000-1.030) Urine Protein 3+ H (Negative) Urine Glucose (UA) Negative (Negative) Urine Ketones Negative (Negative) Urine Blood 3+ H (Negative) Urine Nitrite Negative (Negative) Urine Bilirubin Negative (Negative) Urine Urobilinogen Negative (Negative) Ur Leukocyte Esterase 1+ H (Negative) Urine RBC >20 H (0-2) /hpf Urine WBC >50 H (0-5) /hpf Ur Epithelial Cells 0-2 (0-2) /hpf Urine Bacteria None Seen (None Seen) Administered Medications Lactated Ringer's (Lr) 1,000 mls @ 80 mls/hr IV .[id number] [facility] Stop: 11/27/23 11:59 Last Admin: 11/27/23 00:16 Dose: 80 mls/hr Documented By: GALLITO Discontinued Medications Ceftriaxone Sodium (Rocephin) 2,000 mg in 50 mls @ 100 mls/hr IV NOW STA Stop: 11/26/23 23:04 Last Infusion: 11/27/23 00:12 Dose: Infused Documented By: Admin: 11/26/23 23:24 Dose: 100 mls/hr Documented By: GALLITO Imaging Data Radiologist's Impression: Abdomen/Pelvis CT 11/26/23 21:38 Exam(s): CT ABDOMEN + PELVIS Without Contrast EXAM: CT Abdomen and Pelvis Without Intravenous Contrast CLINICAL HISTORY: Reason for exam: hematuria. TECHNIQUE: Axial computed tomography images of the abdomen and pelvis without intravenous contrast. CTDI is 28.09 mGy and DLP is 1244.22 mGy-cm. Automated exposure control was utilized for the study. A dose lowering technique was utilized adhering to the principles of ALARA. COMPARISON: No relevant prior studies available. FINDINGS: Lung bases: Unremarkable. No mass. No consolidation. ABDOMEN: Liver: Hepatic steatosis. Gallbladder and bile ducts: Cholecystectomy. No ductal dilation. Pancreas: Unremarkable. No ductal dilation. Spleen: Unremarkable. No splenomegaly. Adrenals: Unremarkable. No mass. Kidneys and ureters: Partially obstructing stone in the RIGHT renal pelvis measures 2.1 x 1.0 cm. Mild stranding across the renal pelvis. Multiple additional bilateral nonobstructing renal stones. Mild right- sided hydroureter. Correlate for recently passed ureter stone. Stomach and bowel: Diverticulosis, without acute diverticulitis. No small bowel obstruction. No free intraperitoneal air. PELVIS: Appendix: No findings to suggest acute appendicitis. Bladder: Unremarkable. No stones. Reproductive: Unremarkable as visualized. ABDOMEN and PELVIS: Intraperitoneal space: Unremarkable. No free air. No significant fluid collection. Bones/joints: Degenerative changes of the spine. No acute fracture. No dislocation. Soft tissues: Unremarkable. Vasculature: Atherosclerotic changes of the aorta. No abdominal aortic aneurysm. Lymph nodes: Unremarkable. No enlarged lymph nodes. IMPRESSION: 1. Partially obstructing stone in the RIGHT renal pelvis measures 2.1 x 1.0 cm. Mild stranding across the renal pelvis. Multiple additional bilateral nonobstructing renal stones. 2. Hepatic steatosis. 3. Cholecystectomy. 4. Mild right-sided hydroureter. Correlate for recently passed ureter stone. 5. Diverticulosis, without acute diverticulitis. No small bowel obstruction. No free intraperitoneal air. Electronically signed by: Óscar Dove MD 11/27/23 00:34 AM Discharge Plan Visit Data Chief Complaint: Urinary Symptoms Stated Complaint: WORSENING UTI/ON ANTIBIOTICS ED Provider: Harrison Cartagena Discharge Problem: Hematuria, Kidney calculus Forms Stand Alone Forms: My [facility] [employer] Prescriptions Prescriptions: No Action aspirin [Juliana Low Dose Aspirin] 81 mg Tablet,Delayed Release (Dr/Ec) 81 mg PO QPM simvastatin 40 mg tablet 40 mg PO HS lisinopril 5 mg tablet 5 mg PO QPM vitamin E 400 unit Capsule 400 unit PO QAM meclizine 25 mg tablet 25 mg PO Q8H PRN (Reason: Vertigo) amoxicillin-pot clavulanate 875-125 mg tablet 1 tab PO BID Referrals Referrals: Moses Regalado [Primary Care Provider] -
[2023-11-26] MEDS: cefTRIAXone SODIUM 2,000 MG/50 ML BAG IV STA (23:24)
--- NOTE | 2023-11-26 23:32 | History & Physical Report ---
Date of Service November 26, 2023 Assessment & Plan (1) Urinary tract infection: (2) Kidney calculus: (3) Hematuria: (4) Hypertension: (5) Hyperlipidemia: (6) Vertigo: Plan Urinary tract infection/gross hematuria/large complex right kidney stone/mild right hydronephrosis- Follow urine culture and sensitivity Previously treated with cephalexin from November 16-November 23. She did take 1 dose of Augmentin this morning, November 25. Continue ceftriaxone 2 g IV daily begun in the ED Placed on LR at 80 mL/h x 1 L Acetaminophen 650 mg by mouth every 6 hours as needed for mild pain or fever Of note patient reports that she does not have any pain. Patient does have a history of a sister who of sepsis due to a kidney dysfunction, where she had a drain placed externally for unknown cause. Consult urology, who was consulted on the phone by the ED HTN- Hold lisinopril, ASA HLD- hold simvastatin Vertigo- continue meclizine History of Present Illness Chief Complaint: The patient reports having been treated for a urinary tract infection from November 16- with oral cephalexin, had improvement for 1 day, then today developed gross blood when she was urinating, was given an Rx for Augmentin, of which she took 1 pill, but she became concerned enough to come to the ED for assessment Primary Care Provider: Moses Regalado The patient is a 68-year-old female with a past medical history including hypertension, hyperlipidemia, vertigo, bradycardia, adrenal adenoma and cystocele. She was most recently admitted to the hospital from 09/08-09/09/2022 for vertigo and bradycardia. She developed symptoms of urinary tract infection and was treated with cephalexin from November 16-November 23, had improvement from the day, and then this morning developed gross hematuria while urinating. She was given another prescription for Augmentin today, took 1 pill, but became concerned and came to the ED for assessment. She reports having a sister who had a tube placed from her kidney to her back, and ultimately from sepsis, and did not want to have a repeat process happened to her. Allergies Allergy/AdvReac Type Severity Reaction Status Date / Time latex Allergy Unknown Verified 11/26/23 23:36 No Known Drug Allergies Allergy Unknown Verified 11/26/23 23:36 Home Medications Medication Instructions Recorded Confirmed Type aspirin 81 mg tablet,delayed 81 mg PO QPM 04/02/19 11/26/23 History release (Juliana Low Dose Aspirin) lisinopril 5 mg tablet 5 mg PO QPM 04/02/19 11/26/23 History simvastatin 40 mg tablet 40 mg PO HS 04/02/19 11/26/23 History vitamin E 268 mg (400 unit) capsule 400 unit PO QAM 04/02/19 11/26/23 History meclizine 25 mg tablet 25 mg PO Q8H PRN Vertigo 09/08/22 11/26/23 History amoxicillin 875 mg-potassium 1 tab PO BID 11/26/23 11/26/23 History clavulanate 125 mg tablet Past Med/Surg History Problem List (Updated 11/26/23 @ 22:22 by Harrison Cartagena MD) Kidney calculus (Acute) Hematuria (Acute) Hypertension Hyperlipidemia Vertigo (Acute) Bradycardia (Acute) Adrenal adenoma Gross hematuria Cystocele Medical History Arthritis Hyperlipidemia Hypertension Vertigo Family History Other No significant family history Social History Smoking Status: Never smoker Second Hand Exposure: No; Do You Dip or Chew Tobacco: No; Hx Alcohol Use: No Hx Substance Use: No Preferred Language: Romanian Communication Ability: Effective Data Solutions Architect Required: No Beliefs That Will Affect Care: None Current Living Situation: Spouse Feels Safe at Home: Yes Assistive Devices: None Review of Systems Review of Systems: The patient denies chest pain, palpitations, shortness of breath, dyspnea on exertion, cough, lower extremity swelling, sore throat, fevers, chills, sweats, weight change, fatigue, nausea, vomiting, diarrhea , constipation, blood in stool, dysuria, urinary frequency or urgency, lightheadedness, dizziness, headache, memory loss, loss of consciousness, rash, imbalance, focal or generalized weakness, numbness or tingling in arms or legs, generalized arthralgias or myalgias, neck pain, or night sweats. The review of systems is otherwise negative other than for that already noted above, and at least 10 systems have been reviewed. Physical Exam Physical Exam: The patient is awake, alert and oriented 3, well developed and well nourished, normocephalic and atraumatic, lying in bed and in no acute distress. HEENT--PERRL, EOMI, mucous membranes and oropharynx normal Neck--supple. No JVD. No bruits. Thyroid normal, trachea midline, no adenopathy. Heart--normal S1 and S2. No murmurs, rubs or gallops. Lungs--clear bilaterally, no respiratory distress, no accessory muscle use. Abdomen--normal bowel sounds and soft. Nontender. Nondistended Extremities--no cyanosis or clubbing. No edema. Dermatologic--normal skin turgor, normal color, no abnormal lymph nodes, no rash. Neurologic--cranial nerves II through XII grossly intact. Rheumatologic--normal range of motion. Psychiatric--normal affect. Results & Data Results & Data Vital Signs (Past 12 Hours) Vital Signs Temp Pulse Pulse Resp BP BP Pulse Ox 11/26/23 23:00 63 23 121/75 99 11/26/23 21:01 98 11/26/23 21:00 62 19 131/69 98 11/26/23 20:16 36.5 C 78 16 172/83 H 99 O2 Del Method 11/26/23 23:00 Room Air 11/26/23 21:01 Room Air 11/26/23 21:00 Room Air 11/26/23 20:16 Room Air Laboratory Results Laboratory Results WBC 11.65 K/ul (4.8-10.8) H 11/26/23 20:41 RBC 4.98 M/uL (4.20-5.40) 11/26/23 20:41 Hgb 14.2 g/dl (12.0-16.0) 11/26/23 20:41 Hct 43.4 % (37.0-47.0) 11/26/23 20:41 MCV 87.1 fL (80.0-100.0) 11/26/23 20:41 MCH 28.5 pg (25.0-34.0) 11/26/23 20:41 MCHC 32.7 g/dL (32.0-36.0) 11/26/23 20:41 RDW Std Deviation 42.1 fL (36.4-46.3) 11/26/23 20:41 RDW Coeff of Rafy 13.2 % (11.5-14.5) 11/26/23 20:41 Plt Count 340 K/uL (130-400) 11/26/23 20:41 MPV 10.0 fL (9.4-12.4) 11/26/23 20:41 Immature Gran % (Auto) 0.3 % 11/26/23 20:41 Neut % (Auto) 74.9 % 11/26/23 20:41 Lymph % (Auto) 15.0 % 11/26/23 20:41 [place] % (Auto) 8.4 % 11/26/23 20:41 Eos % (Auto) 0.8 % 11/26/23 20:41 Baso % (Auto) 0.6 % 11/26/23 20:41 Neut # (Auto) 8.72 K/uL (1.40-6.50) H 11/26/23 20:41 Lymph # (Auto) 1.75 K/uL (1.20-3.40) 11/26/23 20:41 [place] # (Auto) 0.98 K/uL (0.11-0.59) H 11/26/23 20:41 Eos # (Auto) 0.09 K/uL (0.00-0.50) 11/26/23 20:41 Baso # (Auto) 0.07 K/uL (0.00-0.20) 11/26/23 20:41 Immature Gran # (Auto) 0.04 K/uL (0.01-0.20) 11/26/23 20:41 Sodium 139 mmol/L (136-145) 11/26/23 20:41 Potassium 4.0 mmol/L (3.5-5.1) 11/26/23 20:41 Chloride 103 mmol/L (98-107) 11/26/23 20:41 Carbon Dioxide 27 mmol/L (21-32) 11/26/23 20:41 Anion Gap 9 (3-11) 11/26/23 20:41 BUN 13 mg/dl (6-23) 11/26/23 20:41 Creatinine 0.72 mg/dl (0.6-1.2) 11/26/23 20:41 Est Cr Clr Drug Dosing 78.6 ml/min 11/26/23 20:41 Est GFR ( Amer) 99.7 ml/min 11/26/23 20:41 Est GFR (Non-Af Amer) 86.1 ml/min 11/26/23 20:41 BUN/Creatinine Ratio 18.1 (10-20) 11/26/23 20:41 Glucose 123 mg/dl (70-99(Fasting)) H 11/26/23 20:41 Lactate 1.2 mmol/L (0.4-2.0) 11/26/23 20:41 Calcium 9.9 mg/dl (8.6-10.3) 11/26/23 20:41 Total Bilirubin 0.6 mg/dl (0.2-1.0) 11/26/23 20:41 AST 16 U/L (13-39) 11/26/23 20:41 ALT 18 U/L (7-52) 11/26/23 20:41 Alkaline Phosphatase 70 U/L (34-104) 11/26/23 20:41 Total Protein 7.7 gm/dl (6.0-8.3) 11/26/23 20:41 Albumin 4.6 gm/dl (3.4-5.0) 11/26/23 20:41 Globulin 3.1 gm/dl (2.5-4.0) 11/26/23 20:41 Albumin/Globulin Ratio 1.5 (0.9-2) 11/26/23 20:41 Lipase 37 U/L (11-82) 11/26/23 20:41 Urine Color Red 11/26/23 20:47 Urine Appearance Turbid (Clear) A 11/26/23 20:47 Urine pH 7.0 (4.5-7.5) 11/26/23 20:47 Ur Specific [place] >= 1.030 (1.000-1.030) 11/26/23 20:47 Urine Protein 3+ (Negative) H 11/26/23 20:47 Urine Glucose (UA) Negative (Negative) 11/26/23 20:47 Urine Ketones Negative (Negative) 11/26/23 20:47 Urine Blood 3+ (Negative) H 11/26/23 20:47 Urine Nitrite Negative (Negative) 11/26/23 20:47 Urine Bilirubin Negative (Negative) 11/26/23 20:47 Urine Urobilinogen Negative (Negative) 11/26/23 20:47 Ur Leukocyte Esterase 1+ (Negative) H 11/26/23 20:47 Urine RBC >20 /hpf (0-2) H 11/26/23 20:47 Urine WBC >50 /hpf (0-5) H 11/26/23 20:47 Ur Epithelial Cells 0-2 /hpf (0-2) 11/26/23 20:47 Urine Bacteria None Seen (None Seen) 11/26/23 20:47 Code Status & VTE Plan Code Status Full code VTE Prophylaxis Plan VTE Prophylaxis will be ordered: Yes PG Care Time/CCT Total # of Minutes Spent Total Time Spent with Patient: Total time spent is greater than 50% in coordination of care (as documented) at patient's floor/unit and/or counseling patient: Coding Level of Care Code 09648 INT INP/OBS CARE 3/75MIN Diagnoses Urinary tract infection N30.01 Hematuria presence: with hematuria Urinary tract infection type: acute cystitis Kidney calculus N20.0 Hematuria R31.9 Hypertension I10 Hyperlipidemia E78.5 Vertigo R42 (1) Urinary tract infection Hematuria presence: with hematuria Urinary tract infection type: acute cystitis Qualified Code(s): N30.01 - Acute cystitis with hematuria
[2023-11-27] MEDS: LACTATED RINGER'S 1,000 ML IV SCH (00:16)
--- NOTE | 2023-11-27 00:35 | CT Scan Report ---
Exam(s): CT ABDOMEN + PELVIS Without Contrast EXAM: CT Abdomen and Pelvis Without Intravenous Contrast CLINICAL HISTORY: Reason for exam: hematuria. TECHNIQUE: Axial computed tomography images of the abdomen and pelvis without intravenous contrast. CTDI is 28.09 mGy and DLP is 1244.22 mGy-cm. Automated exposure control was utilized for the study. A dose lowering technique was utilized adhering to the principles of ALARA. COMPARISON: No relevant prior studies available. FINDINGS: Lung bases: Unremarkable. No mass. No consolidation. ABDOMEN: Liver: Hepatic steatosis. Gallbladder and bile ducts: Cholecystectomy. No ductal dilation. Pancreas: Unremarkable. No ductal dilation. Spleen: Unremarkable. No splenomegaly. Adrenals: Unremarkable. No mass. Kidneys and ureters: Partially obstructing stone in the RIGHT renal pelvis measures 2.1 x 1.0 cm. Mild stranding across the renal pelvis. Multiple additional bilateral nonobstructing renal stones. Mild right- sided hydroureter. Correlate for recently passed ureter stone. Stomach and bowel: Diverticulosis, without acute diverticulitis. No small bowel obstruction. No free intraperitoneal air. PELVIS: Appendix: No findings to suggest acute appendicitis. Bladder: Unremarkable. No stones. Reproductive: Unremarkable as visualized. ABDOMEN and PELVIS: Intraperitoneal space: Unremarkable. No free air. No significant fluid collection. Bones/joints: Degenerative changes of the spine. No acute fracture. No dislocation. Soft tissues: Unremarkable. Vasculature: Atherosclerotic changes of the aorta. No abdominal aortic aneurysm. Lymph nodes: Unremarkable. No enlarged lymph nodes. IMPRESSION: 1. Partially obstructing stone in the RIGHT renal pelvis measures 2.1 x 1.0 cm. Mild stranding across the renal pelvis. Multiple additional bilateral nonobstructing renal stones. 2. Hepatic steatosis. 3. Cholecystectomy. 4. Mild right-sided hydroureter. Correlate for recently passed ureter stone. 5. Diverticulosis, without acute diverticulitis. No small bowel obstruction. No free intraperitoneal air. Electronically signed by: Óscar Dove MD 11/27/23 00:34 AM
[2023-11-27] MEDS ORDERED: ONDANSETRON INJ 2 MG/ML 2 ML VIAL IV PRN (02:17)
[2023-11-27] MEDS ORDERED: ACETAMINOPHEN 325 MG TAB PO PRN (02:17)
[2023-11-27] MEDS ORDERED: MECLIZINE HCL 25 MG TAB PO PRN (02:17)
--- NOTE | 2023-11-27 07:18 | Hospitalist Progress Note ---
Date of Service November 27, 2023 Assessment & Plan (1) Kidney calculus: Plan: pt with large right renal pelvis stone and fat stranding with concern for pyelonephritis, has hydronephrosis Urinary infection is suspected poa, clinically the pt has gross hematuria ER discussion with urology for possible interventional procedure continues on Ceftiraxone, cultures pending pin point growth at this time (2) Hypertension: Plan: chornic and stable Hold lisinopril, ASA Plan HLD- hold simvastatin Vertigo- continue meclizine Admission and Anticipated Discharge Date Admission Date: November 26, 2023 Subjective pt seen in the company of her has limited right sided pain hematuria is reducing Physical Exam Physical Exam: pt is without serious distress cardiac is regular lungs are clear abd with minor right sided pain Results & Data Results & Data Vital Signs (Past 12 Hours) Vital Signs Temp Pulse Pulse Resp BP BP BP 11/27/23 01:50 97.9 F 69 18 142/68 H 11/27/23 01:00 59 L 17 109/65 11/26/23 23:00 63 23 121/75 11/26/23 21:01 11/26/23 21:00 62 19 131/69 11/26/23 20:16 97.7 F 78 16 172/83 H Pulse Ox O2 Del Method 11/27/23 01:50 94 Room Air 11/27/23 01:00 97 Room Air 11/26/23 23:00 99 Room Air 11/26/23 21:01 98 Room Air 11/26/23 21:00 98 Room Air 11/26/23 20:16 99 Room Air Laboratory Results reviewed cbc reviewed chemistry PG Care Time/CCT Total # of Minutes Spent Total Time Spent with Patient: Total time spent is greater than 50% in coordination of care (as documented) at patient's floor/unit and/or counseling patient: Coding Level of Care Code 74460 SUB INP/OBS CARE 2/35MIN Diagnoses Kidney calculus N20.0 Hypertension I10
[2023-11-27 07:25] LABS: Basophils # (auto) 0.06 K/uL (0.00-0.20); Basophils % (auto) 0.7 %; Eosinophils % (auto) 1.1 %; Hematocrit (blood only) 41.1 % (37.0-47.0); Hemoglobin 13.4 g/dl (12.0-16.0); Immature Granulocytes # (auto) 0.02 K/uL (0.01-0.20); Immature Granulocytes % (auto) 0.2 %; Lymphocytes % (auto) 19.3 %; Mean Corpuscular Hemoglobin 28.4 pg (25.0-34.0); Mean Corpuscular Hgb Conc 32.6 g/dL (32.0-36.0); Mean Corpuscular Volume 87.1 fL (80.0-100.0); Mean Platelet Volume 9.7 fL (9.4-12.4); Monocytes # (auto) 0.76 K/uL (0.11-0.59); Monocytes % (auto) 8.6 %; Neutrophils # (auto) 6.16 K/uL (1.40-6.50); Neutrophils % (auto) 70.1 %; Platelet Count 298 K/uL (130-400); RDW Coefficient of Variation 13.2 % (11.5-14.5); RDW Standard Deviation 41.1 fL (36.4-46.3); Red Blood Count 4.72 M/uL (4.20-5.40)
--- NOTE | 2023-11-27 07:43 | Urology Consultation ---
Date of Consultation November 27, 2023 Assessment & Plan (1) Kidney calculus: (2) Hematuria: (3) Hydronephrosis of right kidney: Plan Assessment: Today patient is afebrile, no leukocytosis, normal kidney function CT shows a 2 cm right renal stone with associated hydronephrosis Urine culture is still pending Plan: Discussed options for stone management including acute stone management with ureteral stent placement Discussed ureteral stents in detail with patient along with with risk and benefits of the procedure. Discussed conservative management and symptom control and IV antibiotics versus surgical intervention At this time patient would like to hold off on any surgical intervention today Continue to monitor labs/culture -adjust antibiotics as indicated per primary team Continue supportive care and symptom management Urology team will sign off Please please call for any change in patient's status if a urological surgical intervention is needed please reconsult Urology can arrange outpatient follow-up for further discussion of stone treatment History of Present Illness Attending Physician: Andrae Terrazas MD History of Present Illness This is a 60-year-old female who presented to the ER for gross hematuria. Patient is currently afebrile, and hemodynamically stable. Labs show mild leukocytosis, with normal creatinine. Urinalysis 3+ protein, 3+ blood, 1+ leuks, greater than 20 RBCs greater than 50 WBCs Urine culture is pending CT A/P on 11/26/2023 shows a partially obstructive stone in the right renal pelvis measuring 2 cm with mild stranding across the renal pelvis with mild right sided hydroureter. Multiple additional bilateral nonobstructing stones. Labs reviewed today: WBC 8.80 Creatinine 0.61 Patient was assessed at bedside and sitting comfortably on the side of the bed. She was denying any abdominal or flank pain, denying fevers, chills, nausea, vomiting. She came to the ER due to a repeat episode of gross hematuria. She did have a UTI last week which was causing urinary frequency. Today she says there has been no changes to her baseline urinary symptoms including incomplete bladder emptying or urinary frequency. She does admit to a dropped bladder and says that her urinary symptoms are inconsistent and can consist of urinary frequency at times. She is denying any acute urological concerns today. She was only aware she had kidney stones due to previous imaging but states she has never passed a stone or had surgical intervention for stone removal. Allergies Allergy/AdvReac Type Severity Reaction Status Date / Time latex Allergy Unknown Verified 11/26/23 23:36 No Known Drug Allergies Allergy Unknown Verified 11/26/23 23:36 Home Medications Medication Instructions Recorded Confirmed Type aspirin 81 mg tablet,delayed 81 mg PO QPM 04/02/19 11/26/23 History release (Juliana Low Dose Aspirin) lisinopril 5 mg tablet 5 mg PO QPM 04/02/19 11/26/23 History simvastatin 40 mg tablet 40 mg PO HS 04/02/19 11/26/23 History vitamin E 268 mg (400 unit) capsule 400 unit PO QAM 04/02/19 11/26/23 History meclizine 25 mg tablet 25 mg PO Q8H PRN Vertigo 09/08/22 11/26/23 History amoxicillin 875 mg-potassium 1 tab PO BID 11/26/23 11/26/23 History clavulanate 125 mg tablet Patient History Medical History Arthritis Hyperlipidemia Hypertension Vertigo Family History Other No significant family history Social History Smoking Status: Never smoker Second Hand Exposure: No; Do You Dip or Chew Tobacco: No; Hx Alcohol Use: No Hx Substance Use: No Preferred Language: Pakistani Communication Ability: Effective Fairing Worker Required: No Beliefs That Will Affect Care: None Current Living Situation: Spouse Other Information That Helps Us Care for You: No Feels Safe at Home: Yes Safety Concerns: Feels Safe At This Time Assistive Devices: Cane and Walker Review of Systems Review of Systems: 14 point review of systems negative exce pt for otherwise indicated. Physical Exam Constitutional: well developed and well nourished; no acute distress Respiratory: normal respiratory effort and able to speak in complete sentences Musculoskeletal: Extremities: extremities normal to inspection Psychiatric: Orientation: alert and oriented x 3 Results & Data Vital Signs (Past 12 Hours) Vital Signs Temp Pulse Pulse Resp BP BP BP 11/27/23 01:50 36.6 C 69 18 142/68 H 11/27/23 01:00 59 L 17 109/65 11/26/23 23:00 63 23 121/75 11/26/23 21:01 11/26/23 21:00 62 19 131/69 11/26/23 20:16 36.5 C 78 16 172/83 H Pulse Ox O2 Del Method 11/27/23 01:50 94 Room Air 11/27/23 01:00 97 Room Air 11/26/23 23:00 99 Room Air 11/26/23 21:01 98 Room Air 11/26/23 21:00 98 Room Air 11/26/23 20:16 99 Room Air PG Care Time/CCT Total # of Minutes Spent Total Time Spent with Patient: Total time spent is greater than 50% in coordination of care (as documented) at patient's floor/unit and/or counseling patient: Coding Level of Care Code 64342 INT INP/OBS CARE 2/55MIN Diagnoses Kidney calculus N20.0 Hematuria R31.9 Hydronephrosis of right kidney N13.30
[2023-11-27 07:52] LABS: Albumin Level 3.9 gm/dl (3.4-5.0); BUN Creatinine Ratio 16.4 (10-20); Calcium 8.9 mg/dl (8.6-10.3); Creatinine Clr Calc Pharmacy 93.3 ml/min; Est GFR (Non-African American) 93.1 ml/min; Phosphorus 3.2 mg/dl (2.5-4.9); Potassium 3.9 mmol/L (3.5-5.1)
[2023-11-27] MEDS: cefTRIAXone SODIUM 2,000 MG/50 ML BAG IV SCH (20:20)
[2023-11-28 05:57] LABS: Basophils # (auto) 0.07 K/uL (0.00-0.20); Basophils % (auto) 0.9 %; Eosinophils # (auto) 0.17 K/uL (0.00-0.50); Eosinophils % (auto) 2.2 %; Hematocrit (blood only) 44.3 % (37.0-47.0); Hemoglobin 14.5 g/dl (12.0-16.0); Immature Granulocytes # (auto) 0.03 K/uL (0.01-0.20); Immature Granulocytes % (auto) 0.4 %; Lymphocytes # (auto) 2.03 K/uL (1.20-3.40); Lymphocytes % (auto) 26.2 %; Mean Corpuscular Hemoglobin 28.5 pg (25.0-34.0); Mean Corpuscular Hgb Conc 32.7 g/dL (32.0-36.0); Mean Corpuscular Volume 87.2 fL (80.0-100.0); Mean Platelet Volume 9.4 fL (9.4-12.4); Neutrophils # (auto) 4.74 K/uL (1.40-6.50); Neutrophils % (auto) 61.3 %; Platelet Count 322 K/uL (130-400); RDW Coefficient of Variation 13.1 % (11.5-14.5); RDW Standard Deviation 41.2 fL (36.4-46.3); Red Blood Count 5.08 M/uL (4.20-5.40); White Blood Count 7.74 K/ul (4.8-10.8)
[2023-11-28 06:15] LABS: Albumin Level 4.3 gm/dl (3.4-5.0); BUN Creatinine Ratio 19.4 (10-20); Calcium 9.2 mg/dl (8.6-10.3); Creatinine Clr Calc Pharmacy 79.1 ml/min; Est GFR (African American) 99.7 ml/min; Est GFR (Non-African American) 86.1 ml/min; Phosphorus 3.5 mg/dl (2.5-4.9)
--- NOTE | 2023-11-28 08:45 | Hospitalist Progress Note ---
Date of Service November 28, 2023 Assessment & Plan (1) Kidney calculus: Plan: pt with large right renal pelvis stone and fat stranding with concern for pyelonephritis, has hydronephrosis Urinary infection is suspected poa, clinically the pt has gross hematuria ER discussion with urology for possible interventional procedure continues on Ceftiraxone, cultures pending pin point growth at this time Patient anxious for dc, no further pain or hematuria. Prior urine cx ecoli/pansensitive Discussed w/ micro and ~20,000CFU GNB and will be setting up for cx/sensitivities. WBC wnl, afebrile. Will discuss w/ supervising provider about possible Cipro empiric at dc and can call w/ any resistance if she chooses to want to leave today. (2) Hypertension: Plan: chornic and stable Hold lisinopril, ASA Plan HLD- hold simvastatin Vertigo- continue meclizine Admission and Anticipated Discharge Date Admission Date: November 26, 2023 Results & Data Results & Data Vital Signs (Past 12 Hours) Vital Signs Temp Pulse Resp BP Pulse Ox O2 Del Method 11/28/23 07:28 36.6 C 59 L 16 162/75 H 97 Room Air PG Care Time/CCT Total # of Minutes Spent Total Time Spent with Patient: Total time spent is greater than 50% in coordination of care (as documented) at patient's floor/unit and/or counseling patient: Coding Diagnoses Kidney calculus N20.0 Hypertension I10
--- NOTE | 2023-11-28 09:24 | Discharge Summary ---
Date of Service November 28, 2023 Admission HPI Per Admitting Provider The patient is a 68-year-old female with a past medical history including hypertension, hyperlipidemia, vertigo, bradycardia, adrenal adenoma and cystocele. She was most recently admitted to the hospital from 09/08-09/09/2022 for vertigo and bradycardia. She developed symptoms of urinary tract infection and was treated with cephalexin from November 16-November 23, had improvement from the day, and then this morning developed gross hematuria while urinating. She was given another prescription for Augmentin today, took 1 pill, but became concerned and came to the ED for assessment. She reports having a sister who had a tube placed from her kidney to her back, and ultimately from sepsis, and did not want to have a repeat process happened to her. Admission Exam Per Admitting Provider The patient is awake, alert and oriented 3, well developed and well nourished, normocephalic and atraumatic, lying in bed and in no acute distress. HEENT--PERRL, EOMI, mucous membranes and oropharynx normal Neck--supple. No JVD. No bruits. Thyroid normal, trachea midline, no adenopathy. Heart--normal S1 and S2. No murmurs, rubs or gallops. Lungs--clear bilaterally, no respiratory distress, no accessory muscle use. Abdomen--normal bowel sounds and soft. Nontender. Nondistended Extremities--no cyanosis or clubbing. No edema. Dermatologic--normal skin turgor, normal color, no abnormal lymph nodes, no rash. Neurologic--cranial nerves II through XII grossly intact. Rheumatologic--normal range of motion. Psychiatric--normal affect. Principal Diagnosis UTI, Kidney Stone, Hydronephrosis Discharge Exam General: WD/WN female ambulating the halls with , NAD, seen back in room following ambulation Head atraumatic, normocephalic, mmm, trachea midline Resp: even/unlabored, on room air CV: RRR, no significant m/r/g, no pitting edema/calf tenderness GI: +BS, soft/NT : no rose, no CVA tenderness MSK/Neuro: nonfocal, no slurred speech/facial droop Psych: AOx3, cooperative with exam Discharge Data Allergies Allergy/AdvReac Type Severity Reaction Status Date / Time latex Allergy Unknown Verified 11/26/23 23:36 No Known Drug Allergies Allergy Unknown Verified 11/26/23 23:36 Consultations 11/26/23 22:57 ED Decision to Admit Stat 11/27/23 02:17 Consult Urology Routine Ordered Studies Abdomen/Pelvis CT 11/26/23 21:38 Exam(s): CT ABDOMEN + PELVIS Without Contrast EXAM: CT Abdomen and Pelvis Without Intravenous Contrast CLINICAL HISTORY: Reason for exam: hematuria. TECHNIQUE: Axial computed tomography images of the abdomen and pelvis without intravenous contrast. CTDI is 28.09 mGy and DLP is 1244.22 mGy-cm. Automated exposure control was utilized for the study. A dose lowering technique was utilized adhering to the principles of ALARA. COMPARISON: No relevant prior studies available. FINDINGS: Lung bases: Unremarkable. No mass. No consolidation. ABDOMEN: Liver: Hepatic steatosis. Gallbladder and bile ducts: Cholecystectomy. No ductal dilation. Pancreas: Unremarkable. No ductal dilation. Spleen: Unremarkable. No splenomegaly. Adrenals: Unremarkable. No mass. Kidneys and ureters: Partially obstructing stone in the RIGHT renal pelvis measures 2.1 x 1.0 cm. Mild stranding across the renal pelvis. Multiple additional bilateral nonobstructing renal stones. Mild right- sided hydroureter. Correlate for recently passed ureter stone. Stomach and bowel: Diverticulosis, without acute diverticulitis. No small bowel obstruction. No free intraperitoneal air. PELVIS: Appendix: No findings to suggest acute appendicitis. Bladder: Unremarkable. No stones. Reproductive: Unremarkable as visualized. ABDOMEN and PELVIS: Intraperitoneal space: Unremarkable. No free air. No significant fluid collection. Bones/joints: Degenerative changes of the spine. No acute fracture. No dislocation. Soft tissues: Unremarkable. Vasculature: Atherosclerotic changes of the aorta. No abdominal aortic aneurysm. Lymph nodes: Unremarkable. No enlarged lymph nodes. IMPRESSION: 1. Partially obstructing stone in the RIGHT renal pelvis measures 2.1 x 1.0 cm. Mild stranding across the renal pelvis. Multiple additional bilateral nonobstructing renal stones. 2. Hepatic steatosis. 3. Cholecystectomy. 4. Mild right-sided hydroureter. Correlate for recently passed ureter stone. 5. Diverticulosis, without acute diverticulitis. No small bowel obstruction. No free intraperitoneal air. Electronically signed by: Óscar Dove MD 11/27/23 00:34 AM Hospital Course (1) Kidney calculus: 68yo presented after course of Keflex with improvement of UTI symptoms however then developed gross blood with urination and took Rx Augmentin (1 pill) and presented to ER for concerns/assessment. WBC 11.6k on admission, no procal/blood cultures obtained CTAP noting partially obstructing stone in RIGHT renal pelvis 2.1 x 1cm with mild stranding and mild R sided hydroureter Placed on Ceftriaxone IV, given 2 doses while inpatient No DAVID or fever, renal function remained stable. Urology consulted, patient deferred on stent at this time but going to arrange for outpatient follow up next week and discussed likely need for multiple lithotripsy given size of stone No further hematuria or discomfort however urine cx w/ pin-point growth and called to micro and GNB [id number] and setting up for cx/sensitivity however patient wanting to go home and discussed with supervising provider and urology and Cipro 500mg BID x 5 more days for 7 day course. Did discuss w/ patient that stone may be infected and if repeat issues may need to be continued on abx until stone definitively treated but sent 7 day total course as outlined and monitor for any repeat issues. (2) Hypertension: Chronic/stable but lisinopril on hold given stone as above as well as aspirin for possible stent however declined and will arrange as outpatient. Did have some elevation to 160/70s but asymptomatic and to resume her lisinopril at dc which she takes in the evening HLD- held simvastatin on admit, resumed at dc Vertigo- continue meclizine as needed Plan discharged home with and cipro for GNB on urine cx preliminary and to f/u urology outpatient for stent/litho however did discuss if any repeat/ongoing issues may need to be continued on abx until stone treated. Total Time Total Time Spent Total Time Spent (In Minutes): 40 Discharge Plan Discharge Items Patient Disposition: Home - Self-Care Reason For Visit: R KIDNEY STONE, COMPLICATED UTI Discharge Diagnosis: Kidney Stone, UTI Goals: You have been hospitalized for an acute medical problem. During your stay at [facility], we have made an effort to correct the problem that brought you to the hospital while keeping you as comfortable as possible. Medications were used to bring your condition under control and your discharge instructions will include directions for any medications you should take after leaving the hospital. Please make sure you see your Primary Care Provider as part of your follow up plan. Activity: As commented below Non-emergency contact: Primary Care Provider and Urologist Call non-emergency contact if: you have any medication questions, your symptoms worsen, your pain is not controlled and you have a fever Follow-up/Referrals: Isaac Cedillo DO [Physician] - Moses Regalado [Primary Care Provider] - Diet: Heart Healthy Addtl Attending Provider Instructions: You have been hospitalized for urinary tract infection and blood in your urine despite antibiotics outpatient. You were found to have a large staghorn kidney stone on the right with back up of fluid and urology was consulted however deferred on stent at this time but can be discussed in follow up in the next week or so. They should be scheduling you but if you do not hear from them please call the office at [phone]. Your urine culture is pin-point growth but as discussed I suspect gram negative bacilli and reviewed prior cultures which were sensitive and are planning to send you on Ciprofloxacin 500mg by mouth twice daily for another 5 days. It is possible the stone is infected and if ongoing issues you may need to be on antibiotics until this is completed treatment with stent and lithotripsy as outpatient. Please stay well hydrated and follow up with primary care and urology at discharge. Return to the ER with any fevers, worsening pain, or for any other symptoms concerning for you. It has been a pleasure being a part of the medical team providing for you while you have been in the hospital. Take care! Pending Studies at Discharge: Yes Studies:: urine culture - gram negative bacilli, preliminary Stand-Alone Forms: My [facility] [employer], Smoking Cessation Medications and DC Order Prescriptions: New ciprofloxacin HCl 500 mg tablet 500 mg PO BID 5 Days Qty: 10 0RF Continued aspirin [Juliana Low Dose Aspirin] 81 mg Tablet,Delayed Release (Dr/Ec) 81 mg PO QPM simvastatin 40 mg tablet 40 mg PO HS lisinopril 5 mg tablet 5 mg PO QPM vitamin E 400 unit Capsule 400 unit PO QAM meclizine 25 mg tablet 25 mg PO Q8H PRN (Reason: Vertigo) Discontinued amoxicillin-pot clavulanate 875-125 mg tablet 1 tab PO BID Discharge Orders: Discharge Order (Routine); Ordered 11/28/23 Ordered By: Jennifer Garay Admission Data Admit Date/Time: 11/26/23 23:31 Attending Provider: Suhail Samuels Admit Provider: Reid Donato Primary Care Provider: Moses Regalado Other Providers: Reid Donato; Raf Shepard Other Interventions: Discharge Summary Assessment (RN) Last Done: 11/28/23 09:48 Supervising Physician Co-Signing Physician Notes The patient was not seen by me. The chart was reviewed. Case discussed with ELIZABETH Cardozo. Agree with assessment and plan Coding Level of Care Code 33784 INP/OBS DISCH >30 MIN Diagnoses Kidney calculus N20.0 Hypertension I10
== END 2023-11-28 10:11 | disposition home or self-care (01) | DRG 690 ==
LOC: ED 20:13 → 3N 23:31 → SUATTDRO 23:31 → 3N 11-27 01:40